=== PATIENT | male | born 1975 | race Caucasian/White ===

== ENCOUNTER 2016-09-29 15:04 | Emergency (ER) | payer MEDICAID, OTHER ==
[~2016-09-29] VITALS: Ht 165.1 cm; Wt 70.3 kg
[~2016-09-29 15:04] MED LIST: LORA10TA7 PO; NIFE60TA72 PO; SEVE800T PO
[2016-09-29 15:14] VITALS: BP 146/71
== END 2016-09-29 15:28 | disposition home or self-care (01) ==
LOC: ER 15:07
DX: Z76.0 Encounter for issue of repeat prescription (principal); N19 Unspecified kidney failure
CPT/HCPCS: A4606; Z7610

== ENCOUNTER 2016-12-23 17:58 | Emergency (ER) | payer MEDICAID ==
[~2016-12-23] VITALS: Ht 160 cm; Wt 70.3 kg
[2016-12-23 18:02] VITALS: BP 113/72
== END 2016-12-23 18:28 | disposition home or self-care (01) ==
LOC: ER 17:59
DX: G89.29 Other chronic pain (principal); I12.0 Hypertensive chronic kidney disease with stage 5 chronic kidney disease or end stage renal disease; N18.6 End stage renal disease; Z99.2 Dependence on renal dialysis
CPT/HCPCS: A4606; Z7610

== ENCOUNTER 2017-04-09 18:25 | Emergency (ER) | payer MEDICAID ==
[~2017-04-09] VITALS: Ht 167.6 cm; Wt 74.8 kg
--- NOTE | 2017-04-09 18:45 | NUR ---
PT AMBULATORY TO ER BED 11. C/O BILAT LOWER EXTREMITY PAIN. DENIES TRAUMA. GOWNED AND PLACED ON MONITOR. NAD NOTED. AWAITING MD BERNSTEIN.
--- NOTE | 2017-04-09 19:32 | NUR ---
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
--- NOTE | 2017-04-09 19:37 | NUR ---
IV LINE STARTED BLOOD DRAWN AND SENT TO LAB.
[2017-04-09] MEDS ORDERED: ONDANSETRON HCL/PF 4 MG/2 ML VIAL ONE (19:45)
[2017-04-09] MEDS ORDERED: HYDROMORPHONE 1 MG/1 ML DISP.SYRIN ONE (19:45)
[2017-04-09 19:46] LABS: BASOPHILS % (AUTO) 0.6 % (0.0-2.0); EOSINOPHILS # (AUTO) 0.2 /CMM (0.0-0.7); EOSINOPHILS % (AUTO) 3.8 % (0.0-6.0); HEMATOCRIT 30 % (39-51); HEMOGLOBIN 10.1 g/dL (13.5-17.5); LYMPHOCYTES # (AUTO) 1.3 /CMM (0.8-4.8); MEAN CORPUSCULAR HEMOGLOBIN 33 PG (26.0-33.0); MEAN CORPUSCULAR HGB CONC 34 g/dl (31.0-36.0); MEAN CORPUSCULAR VOLUME 97 fL (80-96); MONOCYTES # (AUTO) 0.7 /CMM (0.1-1.30); MONOCYTES % (AUTO) 14.1 % (2.0-12.0); NEUTROPHILS # (AUTO) 2.8 /CMM (1.8-8.9); NEUTROPHILS % (AUTO) 55.5 % (43.0-81.0); PLATELET COUNT (AUTO) 181 /CMM (150-450); RDW COEFFICIENT OF VARIATION 13.8 (11.5-15.0); RED BLOOD CELL COUNT(AUTO) 3.06 MIL/uL (4.5-6.0)
[2017-04-09 19:52] LABS: CALCIUM, SERUM 7.9 mg/dL (8.5-10.1); POTASSIUM 5.6 mmol/L (3.5-5.1)
[2017-04-09 20:00] LABS: CREATININE 12.4 mg/dL (0.6-1.3)
[2017-04-09] MEDS ORDERED: ONDANSETRON HCL/PF 4 MG/2 ML VIAL IVP ONE (20:00)
[2017-04-09] MEDS ORDERED: IV NS 0.9% 500 ML BAG IV ONE (20:00)
[2017-04-09] MEDS ORDERED: HYDROMORPHONE INJ 2 MG/ML DISP.SYRIN IV ONE (20:00)
[2017-04-09] MEDS ORDERED: DEXTROSE 50%-WATER 50 ML DISP.SYRIN IV ONE (20:30)
[2017-04-09] MEDS ORDERED: SODIUM POLYSTYRENE SULFONATE 15 G/60 ML BOTTLE PO ONE (20:30)
[2017-04-09] MEDS ORDERED: INSULIN REGULAR, HUMAN 100 UNIT/ML 10 ML VIAL IV ONE (20:30)
[2017-04-09] MEDS ORDERED: ALBUTEROL FS 2.5 MG/3 ML VIAL.NEB NEB ONE (20:30)
[2017-04-09] MEDS ORDERED: Calcium Gluconate 1GM/10ML 4.65 MEQ in IV D5W 50 ML IV ONE (20:30)
[2017-04-09 20:40] LABS: MAGNESIUM 2.7 mg/dL (1.8-2.4)
[2017-04-09] MEDS ORDERED: DEXTROSE 50%-WATER 50 ML DISP.SYRIN ONE ×2 (20:42→20:53)
[2017-04-09] MEDS ORDERED: SODIUM POLYSTYRENE SULFONATE 15 G/60 ML BOTTLE ONE (20:42)
[2017-04-09] MEDS ORDERED: Calcium Gluconate 0.465 MEQ/ML VIAL IV ONE (20:42)
[2017-04-09] MEDS ORDERED: INSULIN REGULAR, HUMAN 100 UNIT/ML 10 ML VIAL ONE (20:43)
[2017-04-09 20:58] LABS: PHOSPHORUS 8.6 mg/dL (2.5-4.9)
[2017-04-09] MEDS ORDERED: ALBUTEROL FS 2.5 MG/3 ML VIAL.NEB ONE (21:13)
--- NOTE | 2017-04-09 22:08 | NUR ---
Patient discharged to home in stable condition. Written and verbal after care instructions given. Patient verbalizes understanding of instruction.IV removed. Catheter intact and site benign. Pressure and 4x4 applied to site. No bleeding noted.
[2017-04-09 22:09] VITALS: BP 146/88
== END 2017-04-09 22:10 | disposition home or self-care (01) ==
LOC: ER 18:26
DX: G89.29 Other chronic pain (principal); E83.39 Other disorders of phosphorus metabolism; E87.5 Hyperkalemia; I12.0 Hypertensive chronic kidney disease with stage 5 chronic kidney disease or end stage renal disease; N18.6 End stage renal disease; D63.1 Anemia in chronic kidney disease; Z99.2 Dependence on renal dialysis; Z95.818 Presence of other cardiac implants and grafts
CPT/HCPCS: 36415; 80048; 83735; 84100; 85025; 93005; 94644; 96374; 96375; 99285; A4606; J0610 ×2; J1170; J1815; J2405; J7040; J7060; Z7610

== ENCOUNTER 2017-06-27 15:43 | Emergency (ER) | payer MEDICAID ==
[~2017-06-27] VITALS: Ht 165.1 cm; Wt 77.1 kg
[~2017-06-27 15:43] MED LIST changes: -SEVE800T PO; +SEVE800T7 PO
[2017-06-27 15:44] VITALS: BP 124/86
[2017-06-27] MEDS ORDERED: HYDROCODONE/APAP 5/325MG 1 EACH TABLET ONE (16:26)
[2017-06-27] MEDS ORDERED: HYDROCODONE/APAP 5/325MG 1 EACH TABLET PO ONE (16:30)
== END 2017-06-27 16:36 | disposition home or self-care (01) ==
LOC: ER 15:44
DX: M79.602 Pain in left arm (principal); G89.29 Other chronic pain; I12.0 Hypertensive chronic kidney disease with stage 5 chronic kidney disease or end stage renal disease; N18.6 End stage renal disease; Z99.2 Dependence on renal dialysis; Z98.890 Other specified postprocedural states
CPT/HCPCS: A4606; Z7610

== ENCOUNTER 2023-06-19 14:51 | Inpatient (IN) | payer OTHER ==
[~2023-06-19] VITALS: Ht 165.1 cm; Wt 70.3 kg
[2023-06-19] MEDS ORDERED: DEXTROSE 50%-WATER 50 ML DISP.SYRIN ONE (15:16)
[2023-06-19] MEDS: DEXTROSE 50%-WATER 50 ML DISP.SYRIN IV ONE (15:20)
[2023-06-19 15:42] LABS: BASOPHILS % (AUTO) 1.1 % (0.0-2.0); EOSINOPHILS % (AUTO) 1.6 % (0.0-6.0); HEMATOCRIT 35 % (39-51); HEMOGLOBIN 11.8 g/dL (13.5-17.5); LYMPHOCYTES # (AUTO) 1.3 K/uL (0.8-4.8); LYMPHOCYTES % (AUTO) 42.7 % (20.0-44.0); MEAN CORPUSCULAR HEMOGLOBIN 31 PG (26.0-33.0); MEAN CORPUSCULAR HGB CONC 34 g/dl (31.0-36.0); MEAN CORPUSCULAR VOLUME 92 fL (80-96); MONOCYTES # (AUTO) 0.3 K/uL (0.1-1.30); MONOCYTES % (AUTO) 11.8 % (2.0-12.0); NEUTROPHILS # (AUTO) 1.3 K/uL (1.8-8.9); NEUTROPHILS % (AUTO) 42.8 % (43.0-81.0); PLATELET COUNT (AUTO) 153 K/uL (150-450); RED BLOOD CELL COUNT(AUTO) 3.79 MIL/uL (4.5-6.0); RED CELL DISTRIBUTION WIDTH 14.6 % (11.5-15.0); WHITE BLOOD COUNT (AUTO) 2.9 K/uL (4.3-11.0)
[2023-06-19 15:57] LABS: INR 0.93 (0.91-1.10); PARTIAL THROMBOPLASTIN TIME 29.2 SEC (24.3-34.3); PROTHROMBIN TIME 9.9 SECS (9.2-11.1)
[2023-06-19 15:58] LABS: BILIRUBIN,DIRECT 0.1 mg/dL (0.0-0.2); BILIRUBIN,TOTAL 0.4 mg/dL (0.2-1.0); CALCIUM, SERUM 9.3 mg/dL (8.5-10.1); POTASSIUM 4.2 mmol/L (3.5-5.1)
[2023-06-19 16:06] LABS: CREATININE 8.9 mg/dL (0.6-1.3)
[2023-06-19 16:33] LABS: THYROID STIMULATING HORMONE 1.501 uIU/mL (0.358-3.74)
[2023-06-19] MEDS ORDERED: ACET-2605 PO (16:47)
[2023-06-19] MEDS ORDERED: OMEP40CA21 PO (16:47)
[2023-06-19] MEDS ORDERED: FOLI0.4T6 PO (16:47)
[2023-06-19] MEDS ORDERED: HYDR-4077 PO (16:47)
[2023-06-19] MEDS ORDERED: CLON0.1T PO (16:47)
[2023-06-19] MEDS ORDERED: HYDR-4303 PO (16:47)
[2023-06-19] MEDS ORDERED: MINO2.5T2 PO (16:47)
[2023-06-19 17:55] VITALS: O2SAT 95
[2023-06-19] MEDS ORDERED: ONDANSETRON HCL/PF 4 MG/2 ML VIAL IVP PRN (19:00)
[2023-06-19] MEDS ORDERED: Z GUARD REMEDY 4 OZ OINT TP PRN (19:00)
[2023-06-19] MEDS ORDERED: LORAZEPAM INJ 2 MG/ML VIAL IV PRN (19:00)
[2023-06-19] MEDS: IV D5/ 0.9% NACL 1,000 ML IV PRN (22:42)
[2023-06-19] MEDS: BLOOD SUGAR DIAGNOSTIC 1 EACH STRIP IN SCH (23:50)
[2023-06-19] MEDS: ACETAMINOPHEN 325 MG TABLET PO PRN (23:50)
[2023-06-20 04:50] VITALS: BP 153/89; TEMP 98.1; O2SAT 99
[2023-06-20 07:06] LABS: EOSINOPHILS # (AUTO) 0.1 K/uL (0.0-0.7); EOSINOPHILS % (AUTO) 3.4 % (0.0-6.0); HEMATOCRIT 33 % (39-51); LYMPHOCYTES # (AUTO) 0.7 K/uL (0.8-4.8); LYMPHOCYTES % (AUTO) 33.9 % (20.0-44.0); MEAN CORPUSCULAR HEMOGLOBIN 31 PG (26.0-33.0); MEAN CORPUSCULAR HGB CONC 34 g/dl (31.0-36.0); MEAN CORPUSCULAR VOLUME 92 fL (80-96); MONOCYTES # (AUTO) 0.3 K/uL (0.1-1.30); MONOCYTES % (AUTO) 16.2 % (2.0-12.0); NEUTROPHILS # (AUTO) 0.9 K/uL (1.8-8.9); NEUTROPHILS % (AUTO) 45.5 % (43.0-81.0); PLATELET COUNT (AUTO) 133 K/uL (150-450); RED BLOOD CELL COUNT(AUTO) 3.53 MIL/uL (4.5-6.0); RED CELL DISTRIBUTION WIDTH 14.4 % (11.5-15.0)
[2023-06-20 07:26] LABS: ALBUMIN 3.7 g/dL (3.4-5.0); BILIRUBIN,DIRECT 0.2 mg/dL (0.0-0.2); BILIRUBIN,TOTAL 0.6 mg/dL (0.2-1.0); MAGNESIUM 2.3 mg/dL (1.8-2.4); POTASSIUM 4.2 mmol/L (3.5-5.1); TOTAL PROTEIN, SERUM 7.3 g/dL (6.4-8.2)
[2023-06-20] MEDS ORDERED: MORPHINE SULFATE INJ 2 MG/ML DISP.SYRIN IV PRN (07:30)
[2023-06-20 07:59] LABS: CREATININE 11.1 mg/dL (0.6-1.3)
[2023-06-20] MEDS ORDERED: SEVELAMER CARBONATE 800 MG TABLET PO SCH (08:00)
[2023-06-20] MEDS ORDERED: hydrALAZINE HCL 50 MG TABLET PO SCH (09:00)
[2023-06-20] MEDS ORDERED: THIAMINE HCL 100 MG TABLET PO SCH (09:00)
[2023-06-20] MEDS ORDERED: FOLIC ACID 1 MG TABLET PO SCH (09:00)
[2023-06-20] MEDS ORDERED: PANTOPRAZOLE 40 MG VIAL IV SCH (09:00)
[2023-06-20] MEDS ORDERED: MINOXIDIL (2.5MG) 2.5 MG TABLET PO SCH (09:00)
== END 2023-06-20 06:50 | disposition left against medical advice (07) ==
LOC: ER 14:51 → TELE 21:36
PROVIDERS: ADMIT Nurse Practitioner Family; ATTEND Nurse Practitioner Family
DX: K81.0 Acute cholecystitis (principal); G92.9 Unspecified toxic encephalopathy; I50.23 Acute on chronic systolic (congestive) heart failure; I13.2 Hypertensive heart and chronic kidney disease with heart failure and with stage 5 chronic kidney disease, or end stage renal disease; F10.129 Alcohol abuse with intoxication, unspecified; E87.1 Hypo-osmolality and hyponatremia; N18.6 End stage renal disease; D64.9 Anemia, unspecified; D72.819 Decreased white blood cell count, unspecified; Z99.2 Dependence on renal dialysis; Y90.8 Blood alcohol level of 240 mg/100 ml or more; Z53.29 Procedure and treatment not carried out because of patient's decision for other reasons; E16.2 Hypoglycemia, unspecified
CPT/HCPCS: 36415; 70450-TC; 71045-TC; 80048-TC; 80061-TC; 80076-TC; 82140-TC; 82962-TC; 83690-TC; 83735-TC; 84100-TC; 84443-TC; 85025-TC; 85730-TC; 87081-TC; A4223; G0378; G0480; J7042

== ENCOUNTER 2024-04-14 11:51 | Inpatient (IN) | payer OTHER ==
[~2024-04-14] VITALS: Ht 165.1 cm; Wt 67.1 kg
[~2024-04-14 11:51] MED LIST changes: +ACET-2605 PO; +CLON0.1T PO; +FOLI0.4T6 PO; +HYDR-4077 PO; +HYDR-4303 PO; -LORA10TA7 PO; +MINO2.5T2 PO; -NIFE60TA72 PO; +OMEP40CA21 PO
[2024-04-14] MEDS ORDERED: ONDANSETRON HCL/PF 4 MG/2 ML VIAL ONE (12:03)
[2024-04-14] MEDS: ONDANSETRON HCL/PF 4 MG/2 ML VIAL IVP ONE (12:11)
[2024-04-14 12:15] LABS: BASOPHILS # (AUTO) 0.1 K/uL (0.0-0.2); BASOPHILS % (AUTO) 2.6 % (0.0-2.0); EOSINOPHILS # (AUTO) 0.2 K/uL (0.0-0.7); HEMATOCRIT 25 % (39-51); HEMOGLOBIN 8.2 g/dL (13.5-17.5); LYMPHOCYTES # (AUTO) 0.6 K/uL (0.8-4.8); LYMPHOCYTES % (AUTO) 15.7 % (20.0-44.0); MEAN CORPUSCULAR HEMOGLOBIN 35 PG (26.0-33.0); MEAN CORPUSCULAR HGB CONC 33 g/dl (31.0-36.0); MEAN CORPUSCULAR VOLUME 105 fL (80-96); MONOCYTES # (AUTO) 0.7 K/uL (0.1-1.30); MONOCYTES % (AUTO) 18.6 % (2.0-12.0); NEUTROPHILS % (AUTO) 58.1 % (43.0-81.0); PLATELET COUNT (AUTO) 271 K/uL (150-450); RED BLOOD CELL COUNT(AUTO) 2.38 MIL/uL (4.5-6.0); RED CELL DISTRIBUTION WIDTH 15.1 % (11.5-15.0); WHITE BLOOD COUNT (AUTO) 3.5 K/uL (4.3-11.0)
[2024-04-14 12:22] LABS: CALCIUM, SERUM 9.8 mg/dL (8.5-10.1); CARBON DIOXIDE 25 mmol/L (21-32); CHLORIDE 97 mmol/L (98-107); CREATININE 7.1 mg/dL (0.6-1.3); GLUCOSE 72 mg/dL (74-106); SODIUM SERUM 134 mmol/L (136-145); UREA NITROGEN, BLOOD 30 mg/dL (7-18)
[2024-04-14 12:28] LABS: ALANINE AMINOTRANSFERASE 30 U/L (12-78); ALBUMIN 3.9 g/dL (3.4-5.0); ALKALINE PHOSPHATASE 323 U/L (46-116); ASPARTATE AMINOTRANSFERASE 38 U/L (15-37); BILIRUBIN,DIRECT 0.2 mg/dL (0.0-0.2); BILIRUBIN,TOTAL 0.6 mg/dL (0.2-1.0); LIPASE 70 U/L (16-77); TOTAL PROTEIN, SERUM 7.6 g/dL (6.4-8.2)
[2024-04-14 13:11] LABS: EOSINOPHILS % (MANUAL) 6 % (0-4); LYMPHOCYTES % (MANUAL) 17 % (16-48); MONOCYTES % (MANUAL) 17 % (0-11.0)
[2024-04-14 13:14] LABS: ANISOCYTOSIS 1+; NEUTROPHILS % (MANUAL) 60 (42-76); PLATELET ESTIMATE ADEQUATE
[2024-04-14] MEDS: MORPHINE SULFATE INJ 2 MG/ML DISP.SYRIN IV ONE ×2 (13:30→14:08)
[2024-04-14] MEDS ORDERED: MORPHINE SULFATE INJ 4 MG/ML DISP.SYRIN ONE (13:32)
[2024-04-14] MEDS: PANTOPRAZOLE 40 MG VIAL IV ONE (14:09)
[2024-04-14 14:40] LABS: INR 1.18 (0.91-1.10); PROTHROMBIN TIME 12.1 SECS (9.2-11.1)
[2024-04-14] MEDS ORDERED: MAG HYDROX/AL HYDROX/SIMETH 30 ML UDC PO PRN (15:00)
[2024-04-14] MEDS ORDERED: MAGNESIUM HYDROXIDE 30 ML UDC PO PRN (15:00)
[2024-04-14] MEDS ORDERED: Z GUARD REMEDY 4 OZ OINT TP PRN (15:00)
[2024-04-14] MEDS ORDERED: ONDANSETRON HCL/PF 4 MG/2 ML VIAL IVP PRN (15:00)
[2024-04-14] MEDS ORDERED: GABA300C PO (16:05)
[2024-04-14] MEDS ORDERED: PANT20TA17 PO (16:05)
[2024-04-14] MEDS: SEVELAMER CARBONATE 800 MG TABLET PO SCH (17:00)
[2024-04-14] MEDS ORDERED: CLONIDINE HCL 0.1 MG TABLET ONE (17:16)
[2024-04-14] MEDS: CLONIDINE HCL 0.1 MG TABLET PO SCH (17:17)
[2024-04-14 18:42] VITALS: BP 130/75; TEMP 97.5; O2SAT 99
[2024-04-14 20:00] VITALS: BP 124/75; TEMP 98.6; O2SAT 95
[2024-04-14] MEDS: ACETAMINOPHEN 325 MG TABLET PO PRN (22:20)
[2024-04-15] VITALS: BP 108/63; TEMP 98.4; O2SAT 100
[2024-04-15 04:00] VITALS: BP 118/80; TEMP 98.1; O2SAT 99
[2024-04-15 06:30] LABS: BASOPHILS % (AUTO) 1.6 % (0.0-2.0); EOSINOPHILS # (AUTO) 0.2 K/uL (0.0-0.7); EOSINOPHILS % (AUTO) 9.6 % (0.0-6.0); LYMPHOCYTES # (AUTO) 0.6 K/uL (0.8-4.8); LYMPHOCYTES % (AUTO) 26.6 % (20.0-44.0); MEAN CORPUSCULAR HEMOGLOBIN 34 PG (26.0-33.0); MEAN CORPUSCULAR HGB CONC 33 g/dl (31.0-36.0); MEAN CORPUSCULAR VOLUME 102 fL (80-96); MONOCYTES # (AUTO) 0.4 K/uL (0.1-1.30); MONOCYTES % (AUTO) 19.2 % (2.0-12.0); NEUTROPHILS # (AUTO) 0.9 K/uL (1.8-8.9); PLATELET COUNT (AUTO) 209 K/uL (150-450); RED BLOOD CELL COUNT(AUTO) 2.21 MIL/uL (4.5-6.0); RED CELL DISTRIBUTION WIDTH 14.9 % (11.5-15.0); WHITE BLOOD COUNT (AUTO) 2.1 K/uL (4.3-11.0)
[2024-04-15 07:17] LABS: CALCIUM, SERUM 8.2 mg/dL (8.5-10.1); MAGNESIUM 2.1 mg/dL (1.8-2.4); PHOSPHORUS 4.9 mg/dL (2.5-4.9); POTASSIUM 5.4 mmol/L (3.5-5.1)
[2024-04-15 07:19] LABS: CREATININE 8.7 mg/dL (0.6-1.3)
[2024-04-15 08:00] VITALS: BP 157/92; TEMP 97.7; O2SAT 94
[2024-04-15 08:16] LABS: HEMATOCRIT 23 % (39-51); HEMOGLOBIN 7.5 g/dL (13.5-17.5)
[2024-04-15] MEDS: PANTOPRAZOLE 40 MG VIAL IV SCH (08:16)
[2024-04-15 09:12] LABS: BASOPHILS % (MANUAL) 0 % (0.0-2.0); EOSINOPHILS % (MANUAL) 8 % (0-4); LYMPHOCYTES % (MANUAL) 19 % (16-48); MONOCYTES % (MANUAL) 17 % (0-11.0); NEUTROPHILS % (MANUAL) 56 (42-76)
[2024-04-15 09:13] LABS: PLATELET ESTIMATE ADEQUATE
[2024-04-15] MEDS: EPOETIN ALFA (10,000 UNIT) 10,000 UNIT/ML VIAL SQ ONE (10:33)
[2024-04-15] MEDS: LIDOCAINE 1%-EPI 1:200,000 SDV 10 ML VIAL IJ ONE (13:14)
[2024-04-15 16:00] VITALS: BP 135/70; TEMP 98.6; O2SAT 95
[2024-04-15 16:33] VITALS: BP 135/70
[2024-04-16 08:07] LABS: HEPATITIS B SURFACE AB Reactive (.)
== END 2024-04-15 18:51 | disposition left against medical advice (07) | DRG 253 ==
LOC: ER 11:55 → TELE1 16:47 → MEDSG1 04-15 10:46
PROVIDERS: ADMIT Internal Medicine; ATTEND Internal Medicine
PROC: 5A1D70Z Performance of Urinary Filtration, Intermittent, Less than 6 Hours Per Day (ICD-10-PCS; principal; 2024-04-15)
DX: K92.2 Gastrointestinal hemorrhage, unspecified (principal); I12.0 Hypertensive chronic kidney disease with stage 5 chronic kidney disease or end stage renal disease; E87.1 Hypo-osmolality and hyponatremia; N18.6 End stage renal disease; D50.9 Iron deficiency anemia, unspecified; D72.819 Decreased white blood cell count, unspecified; E87.5 Hyperkalemia; G89.4 Chronic pain syndrome; E87.70 Fluid overload, unspecified; N25.0 Renal osteodystrophy; Z99.2 Dependence on renal dialysis; M89.8X9 Other specified disorders of bone, unspecified site; R74.01 Elevation of levels of liver transaminase levels; E87.79 Other fluid overload; N20.0 Calculus of kidney; Z53.29 Procedure and treatment not carried out because of patient's decision for other reasons
CPT/HCPCS: 36415; 71045-TC; 76700-TC; 80048-TC; 80076-TC; 83690-TC; 83735-TC; 84100-TC; 84484-TC; 85025-TC; 85610-TC; 86706; 86850-TC; 87340; 98960; G0378; J0885; J2270; J2405; J2470; J3490; J7030

== ENCOUNTER 2024-06-07 11:30 | Inpatient (IN) | payer OTHER ==
[~2024-06-07] VITALS: Ht 162.6 cm; Wt 67.6 kg
[~2024-06-07 11:30] MED LIST changes: -ACET-2605 PO; +GABA300C PO; -HYDR-4303 PO; +PANT20TA17 PO
[2024-06-07] MEDS ORDERED: ACETAMINOPHEN ES 500 MG TABLET ONE (12:07)
[2024-06-07] MEDS: ACETAMINOPHEN ES 500 MG TABLET PO ONE (12:10)
[2024-06-07 12:38] LABS: CALCIUM, SERUM 8.7 mg/dL (8.5-10.1); CARBON DIOXIDE 21 mmol/L (21-32); CHLORIDE 94 mmol/L (98-107); GLUCOSE 95 mg/dL (74-106); POTASSIUM 5.5 mmol/L (3.5-5.1); SODIUM SERUM 131 mmol/L (136-145); UREA NITROGEN, BLOOD 57 mg/dL (7-18)
[2024-06-07 12:42] LABS: BASOPHILS # (AUTO) 0.1 K/uL (0.0-0.2); EOSINOPHILS % (AUTO) 0.7 % (0.0-6.0); HEMATOCRIT 34 % (39-51); HEMOGLOBIN 11.2 g/dL (13.5-17.5); LYMPHOCYTES # (AUTO) 0.6 K/uL (0.8-4.8); LYMPHOCYTES % (AUTO) 25.3 % (20.0-44.0); MEAN CORPUSCULAR HEMOGLOBIN 33 PG (26.0-33.0); MEAN CORPUSCULAR HGB CONC 33 g/dl (31.0-36.0); MEAN CORPUSCULAR VOLUME 99 fL (80-96); MONOCYTES # (AUTO) 0.2 K/uL (0.1-1.30); MONOCYTES % (AUTO) 10.4 % (2.0-12.0); NEUTROPHILS # (AUTO) 1.4 K/uL (1.8-8.9); NEUTROPHILS % (AUTO) 60.6 % (43.0-81.0); PLATELET COUNT (AUTO) 263 K/uL (150-450); RED CELL DISTRIBUTION WIDTH 16.9 % (11.5-15.0); WHITE BLOOD COUNT (AUTO) 2.4 K/uL (4.3-11.0)
[2024-06-07 12:45] LABS: CREATININE 13.7 mg/dL (0.6-1.3)
[2024-06-07] MEDS ORDERED: LABE100T5 PO (12:51)
[2024-06-07] MEDS ORDERED: ACETAMINOPHEN 325 MG TABLET PO PRN (15:00)
[2024-06-07] MEDS ORDERED: ONDANSETRON HCL/PF 4 MG/2 ML VIAL IVP PRN (15:00)
[2024-06-07] MEDS: GABAPENTIN 300 MG CAPSULE PO SCH (17:32)
[2024-06-07] MEDS: hydrALAZINE HCL 50 MG TABLET PO SCH (17:32)
[2024-06-07] MEDS: MORPHINE SULFATE INJ 2 MG/ML DISP.SYRIN IV PRN (17:32)
[2024-06-07] MEDS: MINOXIDIL (2.5MG) 2.5 MG TABLET PO SCH (17:33)
[2024-06-07] MEDS: SEVELAMER CARBONATE 800 MG TABLET PO SCH (17:33)
[2024-06-07 18:54] LABS: ALBUMIN 3.6 g/dL (3.4-5.0); BILIRUBIN,TOTAL 0.5 mg/dL (0.2-1.0); CALCIUM, SERUM 9.3 mg/dL (8.5-10.1); POTASSIUM 6.1 mmol/L (3.5-5.1); TOTAL PROTEIN, SERUM 7.2 g/dL (6.4-8.2)
[2024-06-07 18:58] LABS: CREATININE 13.7 mg/dL (0.6-1.3)
[2024-06-07 20:00] VITALS: BP 169/93; TEMP 98.2; O2SAT 96
[2024-06-07] MEDS: HEPARIN SODIUM, PORCINE 5000 UNITS/1 ML VIAL SQ SCH (21:12)
[2024-06-07] MEDS: hydrALAZINE HCL IV 20 MG VIAL IV PRN (21:22)
[2024-06-07] MEDS: SODIUM POLYSTYRENE SULFONATE 15 G/60 ML BOTTLE PO ONE (21:59)
[2024-06-08] VITALS (10 sets, daily range): BP systolic 155–175; BP diastolic 74–100; TEMP 97–99.1; O2SAT 93–96
[2024-06-08 06:50] LABS: ALBUMIN 3.5 g/dL (3.4-5.0); BILIRUBIN,TOTAL 0.6 mg/dL (0.2-1.0); CALCIUM, SERUM 9.2 mg/dL (8.5-10.1); MAGNESIUM 2.7 mg/dL (1.8-2.4); PHOSPHORUS 6.5 mg/dL (2.5-4.9); TOTAL PROTEIN, SERUM 7.3 g/dL (6.4-8.2)
[2024-06-08 06:56] LABS: BASOPHILS % (AUTO) 0.9 % (0.0-2.0); EOSINOPHILS # (AUTO) 0.1 K/uL (0.0-0.7); EOSINOPHILS % (AUTO) 2.2 % (0.0-6.0); HEMATOCRIT 32 % (39-51); HEMOGLOBIN 10.7 g/dL (13.5-17.5); LYMPHOCYTES # (AUTO) 0.6 K/uL (0.8-4.8); LYMPHOCYTES % (AUTO) 16.5 % (20.0-44.0); MEAN CORPUSCULAR HEMOGLOBIN 33 PG (26.0-33.0); MEAN CORPUSCULAR HGB CONC 33 g/dl (31.0-36.0); MEAN CORPUSCULAR VOLUME 99 fL (80-96); MONOCYTES # (AUTO) 0.4 K/uL (0.1-1.30); MONOCYTES % (AUTO) 11.7 % (2.0-12.0); NEUTROPHILS # (AUTO) 2.4 K/uL (1.8-8.9); NEUTROPHILS % (AUTO) 68.7 % (43.0-81.0); PLATELET COUNT (AUTO) 234 K/uL (150-450); RED BLOOD CELL COUNT(AUTO) 3.24 MIL/uL (4.5-6.0); WHITE BLOOD COUNT (AUTO) 3.5 K/uL (4.3-11.0)
[2024-06-08 08:04] LABS: CREATININE 14.3 mg/dL (0.6-1.3); POTASSIUM 6.3 mmol/L (3.5-5.1)
[2024-06-08] MEDS: SODIUM ZIRCONIUM CYCLOSILICATE 10 GM POWD.PACK PO ONE (13:43)
[2024-06-08] MEDS: SODIUM POLYSTYRENE SULFONATE 15 G/60 ML BOTTLE PO ONE (13:43)
[2024-06-08 16:43] LABS: CALCIUM, SERUM 9.1 mg/dL (8.5-10.1); POTASSIUM 5.3 mmol/L (3.5-5.1)
[2024-06-08 16:46] LABS: CREATININE 15.3 mg/dL (0.6-1.3)
[2024-06-09] VITALS: BP 156/85; TEMP 98.7; O2SAT 95
[2024-06-09 04:00] VITALS: BP 146/84; TEMP 98.5; O2SAT 95
[2024-06-09 08:00] VITALS: BP 146/93; TEMP 98.1; O2SAT 95
[2024-06-09 12:00] VITALS: BP 144/85; TEMP 98.2; O2SAT 96
[2024-06-09 13:46] LABS: EOSINOPHILS # (AUTO) 0.2 K/uL (0.0-0.7); EOSINOPHILS % (AUTO) 5.6 % (0.0-6.0); HEMATOCRIT 31 % (39-51); HEMOGLOBIN 10.6 g/dL (13.5-17.5); LYMPHOCYTES # (AUTO) 0.6 K/uL (0.8-4.8); LYMPHOCYTES % (AUTO) 19.7 % (20.0-44.0); MEAN CORPUSCULAR HEMOGLOBIN 33 PG (26.0-33.0); MEAN CORPUSCULAR HGB CONC 34 g/dl (31.0-36.0); MEAN CORPUSCULAR VOLUME 97 fL (80-96); MONOCYTES # (AUTO) 0.4 K/uL (0.1-1.30); MONOCYTES % (AUTO) 12.1 % (2.0-12.0); NEUTROPHILS % (AUTO) 61.6 % (43.0-81.0); PLATELET COUNT (AUTO) 163 K/uL (150-450); RED BLOOD CELL COUNT(AUTO) 3.25 MIL/uL (4.5-6.0); RED CELL DISTRIBUTION WIDTH 17.1 % (11.5-15.0); WHITE BLOOD COUNT (AUTO) 3.3 K/uL (4.3-11.0)
[2024-06-09 14:52] LABS: ALBUMIN 3.1 g/dL (3.4-5.0); BILIRUBIN,TOTAL 0.6 mg/dL (0.2-1.0); CALCIUM, SERUM 9.3 mg/dL (8.5-10.1); MAGNESIUM 2.3 mg/dL (1.8-2.4); PHOSPHORUS 5.7 mg/dL (2.5-4.9); POTASSIUM 5.2 mmol/L (3.5-5.1); TOTAL PROTEIN, SERUM 7.3 g/dL (6.4-8.2)
[2024-06-09 15:15] LABS: CREATININE 16.3 mg/dL (0.6-1.3)
[2024-06-09 20:00] VITALS: BP 129/77; TEMP 98.6; O2SAT 96
[2024-06-10 07:30] VITALS: BP 161/90; TEMP 98.6; O2SAT 96
[2024-06-10 12:33] VITALS: BP 140/92
== END 2024-06-10 13:00 | disposition home or self-care (01) | DRG 203 ==
LOC: ER 11:40 → TELE 16:29 → MED 06-09 17:03
PROVIDERS: ADMIT Internal Medicine; ATTEND Nurse Practitioner Acute Care
PROC: 5A1D70Z Performance of Urinary Filtration, Intermittent, Less than 6 Hours Per Day (ICD-10-PCS; principal; 2024-06-08)
DX: M94.0 Chondrocostal junction syndrome [Tietze] (principal); I12.0 Hypertensive chronic kidney disease with stage 5 chronic kidney disease or end stage renal disease; E87.1 Hypo-osmolality and hyponatremia; E87.79 Other fluid overload; F10.129 Alcohol abuse with intoxication, unspecified; D50.9 Iron deficiency anemia, unspecified; D72.819 Decreased white blood cell count, unspecified; Y90.7 Blood alcohol level of 200-239 mg/100 ml; N18.6 End stage renal disease; Z99.2 Dependence on renal dialysis; E87.5 Hyperkalemia; I16.0 Hypertensive urgency; Z91.199 Patient's noncompliance with other medical treatment and regimen due to unspecified reason; M89.8X9 Other specified disorders of bone, unspecified site
CPT/HCPCS: 36415; 71045-TC; 80048-TC; 80053-TC; 83735-TC; 84100-TC; 84484-TC; 85025-TC; 90935-TC; 93307-TC; 98960; G0378; G0480; J0360; J1644; J2270; J7030

== ENCOUNTER 2024-09-08 03:25 | Inpatient (IN) | payer OTHER ==
[~2024-09-08] VITALS: Ht 165.1 cm; Wt 70.3 kg
[~2024-09-08 03:25] MED LIST changes: +LABE100T5 PO; -PANT20TA17 PO
[2024-09-08] MEDS ORDERED: CIPR5DRO18 EACHEYE (06:16)
[2024-09-08] MEDS ORDERED: GABA-532 PO (06:16)
[2024-09-08 06:27] LABS: CALCIUM, SERUM 10.7 mg/dL (8.5-10.1); POTASSIUM 4.3 mmol/L (3.5-5.1)
[2024-09-08 06:29] LABS: CREATININE 12.5 mg/dL (0.6-1.3)
[2024-09-08] MEDS: MORPHINE SULFATE INJ 2 MG/ML DISP.SYRIN IV ONE (06:30)
[2024-09-08] MEDS ORDERED: ONDANSETRON HCL/PF 4 MG/2 ML VIAL ONE (06:30)
[2024-09-08] MEDS: ONDANSETRON HCL/PF - ER 4 MG/2 ML VIAL IV ONE (06:30)
[2024-09-08] MEDS ORDERED: MORPHINE SULFATE INJ 2 MG/ML DISP.SYRIN ONE (06:31)
[2024-09-08 06:33] LABS: ALBUMIN 4.2 g/dL (3.4-5.0); BILIRUBIN,TOTAL 0.6 mg/dL (0.2-1.0); TOTAL PROTEIN, SERUM 7.5 g/dL (6.4-8.2)
[2024-09-08 06:34] LABS: EOSINOPHILS # (AUTO) 0.2 K/uL (0.0-0.7); EOSINOPHILS % (AUTO) 6.7 % (0.0-6.0); HEMATOCRIT 34 % (39-51); HEMOGLOBIN 11.5 g/dL (13.5-17.5); LYMPHOCYTES # (AUTO) 0.8 K/uL (0.8-4.8); LYMPHOCYTES % (AUTO) 32.9 % (20.0-44.0); MEAN CORPUSCULAR HEMOGLOBIN 33 PG (26.0-33.0); MEAN CORPUSCULAR HGB CONC 34 g/dl (31.0-36.0); MEAN CORPUSCULAR VOLUME 97 fL (80-96); MONOCYTES # (AUTO) 0.5 K/uL (0.1-1.30); NEUTROPHILS # (AUTO) 0.9 K/uL (1.8-8.9); NEUTROPHILS % (AUTO) 37.4 % (43.0-81.0); PLATELET COUNT (AUTO) 171 K/uL (150-450); RED BLOOD CELL COUNT(AUTO) 3.54 MIL/uL (4.5-6.0); RED CELL DISTRIBUTION WIDTH 16.7 % (11.5-15.0); WHITE BLOOD COUNT (AUTO) 2.4 K/uL (4.3-11.0)
[2024-09-08 06:57] LABS: ANISOCYTOSIS 1+; BASOPHILS % (MANUAL) 0 % (0.0-2.0); EOSINOPHILS % (MANUAL) 5 % (0-4); LYMPHOCYTES % (MANUAL) 31 % (16-48); MONOCYTES % (MANUAL) 20 % (0-11.0); NEUTROPHILS % (MANUAL) 44 (42-76); PLATELET ESTIMATE ADEQUATE
[2024-09-08] MEDS ORDERED: ENOXAPARIN SODIUM 30 MG/0.3 ML DISP.SYRIN ONE (07:45)
[2024-09-08] MEDS ORDERED: ENOXAPARIN SODIUM 40 MG/0.4 ML DISP.SYRIN SQ ONE (07:45)
[2024-09-08] MEDS ORDERED: ENOXAPARIN SODIUM 80 MG/0.8 ML DISP.SYRIN SQ ONE (07:49)
[2024-09-08] MEDS: ENOXAPARIN SODIUM 80 MG/0.8 ML DISP.SYRIN SQ ONE (07:53)
[2024-09-08] MEDS ORDERED: CINA60TA4 PO (09:38)
[2024-09-08] MEDS ORDERED: PATI8.4P PO (09:38)
[2024-09-08] MEDS ORDERED: HEPARIN SODIUM, PORCINE 5000 UNITS/1 ML VIAL ONE (09:44)
[2024-09-08] MEDS ORDERED: MAG HYDROX/AL HYDROX/SIMETH 30 ML UDC PO PRN (10:00)
[2024-09-08] MEDS ORDERED: Z GUARD REMEDY 4 OZ OINT TP PRN (10:00)
[2024-09-08] MEDS ORDERED: ACETAMINOPHEN 325 MG TABLET PO PRN (10:00)
[2024-09-08] MEDS ORDERED: MAGNESIUM HYDROXIDE 30 ML UDC PO PRN (10:00)
[2024-09-08] MEDS ORDERED: ONDANSETRON HCL/PF 4 MG/2 ML VIAL IVP PRN (10:00)
[2024-09-08 10:38] LABS: INR 1.03 (0.91-1.10); PARTIAL THROMBOPLASTIN TIME 33.3 SEC (24.3-34.3); PROTHROMBIN TIME 10.6 SECS (9.2-11.1)
[2024-09-08] MEDS: HEPARIN SODIUM,PORCINE/PF 50 UNIT/5 ML DISP.SYRIN IV ONE (11:10)
[2024-09-08] MEDS ORDERED: HEPARIN INFUSION/D5W 500 ML IV ONE (12:13)
[2024-09-08] MEDS: SEVELAMER CARBONATE 800 MG TABLET PO SCH (13:00)
[2024-09-08] MEDS: MINOXIDIL (2.5MG) 2.5 MG TABLET PO SCH (13:00)
[2024-09-08] MEDS: GABAPENTIN 100 MG CAPSULE PO SCH (13:00)
[2024-09-08] MEDS: hydrALAZINE HCL 50 MG TABLET PO SCH (13:00)
[2024-09-08] MEDS: CLONIDINE HCL 0.1 MG TABLET PO SCH (13:00)
[2024-09-08] MEDS ORDERED: HYDROCODONE/APAP 5/325MG TABLET PO PRN (15:00)
[2024-09-08 15:08] LABS: INR 1.06 (0.91-1.10); PROTHROMBIN TIME 11.2 SECS (9.2-11.1)
[2024-09-08] MEDS: HEPARIN INFUSION/D5W 500 ML IV PRN (15:27)
[2024-09-08 15:49] VITALS: BP 145/81; TEMP 98; O2SAT 99
[2024-09-08 16:20] VITALS: BP 171/88; TEMP 98.2; O2SAT 97
[2024-09-08] MEDS: oxyCODONE/APAP (5/325 MG) 1 UDTAB TABLET PO PRN (16:38)
[2024-09-08] MEDS: LABETALOL HCL (100MG) 100 MG TABLET PO SCH (21:50)
[2024-09-09 07:16] LABS: EOSINOPHILS # (AUTO) 0.2 K/uL (0.0-0.7); EOSINOPHILS % (AUTO) 9.6 % (0.0-6.0); HEMATOCRIT 34 % (39-51); HEMOGLOBIN 11.6 g/dL (13.5-17.5); LYMPHOCYTES # (AUTO) 0.8 K/uL (0.8-4.8); LYMPHOCYTES % (AUTO) 36.3 % (20.0-44.0); MEAN CORPUSCULAR HEMOGLOBIN 33 PG (26.0-33.0); MEAN CORPUSCULAR HGB CONC 34 g/dl (31.0-36.0); MEAN CORPUSCULAR VOLUME 98 fL (80-96); MONOCYTES # (AUTO) 0.4 K/uL (0.1-1.30); MONOCYTES % (AUTO) 20.4 % (2.0-12.0); NEUTROPHILS # (AUTO) 0.7 K/uL (1.8-8.9); NEUTROPHILS % (AUTO) 32.7 % (43.0-81.0); PLATELET COUNT (AUTO) 173 K/uL (150-450); WHITE BLOOD COUNT (AUTO) 2.2 K/uL (4.3-11.0)
[2024-09-09] MEDS: POLYVINYL ALCOHOL 15 ML BOTTLE EACHEYE PRN (07:50)
[2024-09-09 08:14] LABS: CALCIUM, SERUM 10.4 mg/dL (8.5-10.1); MAGNESIUM 2.2 mg/dL (1.8-2.4); PHOSPHORUS 5.3 mg/dL (2.5-4.9); POTASSIUM 5.2 mmol/L (3.5-5.1)
[2024-09-09 08:36] LABS: CREATININE 11.4 mg/dL (0.6-1.3)
[2024-09-09] MEDS: PANTOPRAZOLE 40 MG TABLET.DR PO SCH (08:46)
[2024-09-09] MEDS: FOLIC ACID 1 MG TABLET PO SCH (08:46)
[2024-09-09] MEDS: CINACALCET HCL 30 MG TABLET PO SCH (08:57)
[2024-09-09 09:00] VITALS: BP 152/83; TEMP 97.9; O2SAT 97
[2024-09-09 10:52] LABS: EOSINOPHILS % (MANUAL) 7 % (0-4); LYMPHOCYTES % (MANUAL) 38 % (16-48); MONOCYTES % (MANUAL) 22 % (0-11.0); NEUTROPHILS % (MANUAL) 33 (42-76)
[2024-09-09 10:53] LABS: ANISOCYTOSIS 1+; PLATELET ESTIMATE ADEQUATE
[2024-09-09] MEDS ORDERED: APIX5TAB PO (11:07)
[2024-09-09] MEDS ORDERED: APIX5TAB4 PO (11:07)
== END 2024-09-09 13:29 | disposition home or self-care (01) | DRG 197 ==
LOC: ER 03:33 → TELE1 11:55 → MEDSG1 09-09 10:09
PROVIDERS: ADMIT Nurse Practitioner Acute Care; ATTEND Nurse Practitioner Acute Care
PROC: 5A1D70Z Performance of Urinary Filtration, Intermittent, Less than 6 Hours Per Day (ICD-10-PCS; principal; 2024-09-08)
DX: I82.412 Acute embolism and thrombosis of left femoral vein (principal); I12.0 Hypertensive chronic kidney disease with stage 5 chronic kidney disease or end stage renal disease; J81.1 Chronic pulmonary edema; E83.9 Disorder of mineral metabolism, unspecified; E87.1 Hypo-osmolality and hyponatremia; D63.1 Anemia in chronic kidney disease; N18.6 End stage renal disease; E83.52 Hypercalcemia; E87.5 Hyperkalemia; Z59.00 Homelessness unspecified; Z79.01 Long term (current) use of anticoagulants; Z99.2 Dependence on renal dialysis; D72.819 Decreased white blood cell count, unspecified; E87.70 Fluid overload, unspecified
CPT/HCPCS: 36415; 71045-TC; 80048-TC; 80053-TC; 83735-TC; 84100-TC; 85025-TC; 85610-TC; 85730-TC; 87040-TC; 87081-TC; 93970-TC; A4223; A6403; G0378; J1642; J1644; J1650; J2270; J2405; J7030

== ENCOUNTER 2024-09-29 11:42 | Emergency (ER) | payer OTHER ==
[~2024-09-29] VITALS: Ht 165.1 cm; Wt 70.8 kg
[~2024-09-29 11:42] MED LIST changes: +APIX5TAB PO; +APIX5TAB4 PO; +CINA60TA4 PO; +CIPR5DRO18 EACHEYE; +GABA-532 PO; -GABA300C PO; +PATI8.4P PO
[2024-09-29] MEDS: ONDANSETRON HCL/PF 4 MG/2 ML VIAL IV ONE (12:00)
[2024-09-29] MEDS: MORPHINE SULFATE INJ 2 MG/ML DISP.SYRIN IV ONE (12:00)
[2024-09-29] MEDS ORDERED: MORPHINE SULFATE INJ 4 MG/ML DISP.SYRIN ONE ×2 (12:08→12:16)
[2024-09-29] MEDS ORDERED: ONDANSETRON 4 MG TAB.RAPDIS ONE (12:08)
[2024-09-29] MEDS ORDERED: ONDANSETRON HCL/PF 4 MG/2 ML VIAL ONE (12:08)
[2024-09-29 12:36] LABS: CALCIUM, SERUM 10.5 mg/dL (8.5-10.1); CREATININE 5.4 mg/dL (0.6-1.3); POTASSIUM 4.6 mmol/L (3.5-5.1)
[2024-09-29 13:08] LABS: BASOPHILS % (AUTO) 1.2 % (0.0-2.0); EOSINOPHILS # (AUTO) 0.1 K/uL (0.0-0.7); EOSINOPHILS % (AUTO) 5.1 % (0.0-6.0); HEMATOCRIT 32 % (39-51); HEMOGLOBIN 11.1 g/dL (13.5-17.5); LYMPHOCYTES # (AUTO) 0.7 K/uL (0.8-4.8); LYMPHOCYTES % (AUTO) 30.2 % (20.0-44.0); MEAN CORPUSCULAR HEMOGLOBIN 33 PG (26.0-33.0); MEAN CORPUSCULAR HGB CONC 34 g/dl (31.0-36.0); MEAN CORPUSCULAR VOLUME 97 fL (80-96); MONOCYTES # (AUTO) 0.4 K/uL (0.1-1.30); NEUTROPHILS # (AUTO) 1.1 K/uL (1.8-8.9); NEUTROPHILS % (AUTO) 46.5 % (43.0-81.0); PLATELET COUNT (AUTO) 128 K/uL (150-450); RED BLOOD CELL COUNT(AUTO) 3.33 MIL/uL (4.5-6.0); RED CELL DISTRIBUTION WIDTH 15.2 % (11.5-15.0); WHITE BLOOD COUNT (AUTO) 2.3 K/uL (4.3-11.0)
[2024-09-29] MEDS ORDERED: CEPH-570 PO (13:26)
[2024-09-29] MEDS ORDERED: SULF1TAB47 PO (13:26)
[2024-09-29] MEDS ORDERED: HYDR-4303 PO (13:28)
[2024-09-29 13:47] LABS: ANISOCYTOSIS 1+; EOSINOPHILS % (MANUAL) 3 % (0-4); LYMPHOCYTES % (MANUAL) 34 % (16-48); MONOCYTES % (MANUAL) 6 % (0-11.0); NEUTROPHILS % (MANUAL) 57 (42-76); PLATELET ESTIMATE DECREASED
[2024-09-29 13:48] VITALS: BP 140/80; TEMP 98.8; O2SAT 98
== END 2024-09-29 13:48 | disposition home or self-care (01) ==
LOC: ER 11:46
DX: L03.115 Cellulitis of right lower limb (principal); D61.818 Other pancytopenia; I12.0 Hypertensive chronic kidney disease with stage 5 chronic kidney disease or end stage renal disease; N18.6 End stage renal disease; I73.9 Peripheral vascular disease, unspecified; Z79.01 Long term (current) use of anticoagulants; Z79.899 Other long term (current) drug therapy; Z99.2 Dependence on renal dialysis; Z60.2 Problems related to living alone
CPT/HCPCS: 99285; 96374; 71045; 96375; 93005; 73630; 85025; 80048; 87040 ×2; 85652; 36415; 86140; J2270 ×2; J2405; Q0162